=== PATIENT | female | born 1990 | race Caucasian/White ===

== ENCOUNTER → 2021-01-02 13:23 | Outpatient (CLI) | payer OTHER, SELFPAY ==
--- NOTE | ~2021-01-02 | US_ITS ---
EXAMINATION: US OB transvaginal DATE: 01/02/2021 13:42 INDICATION: Gestational dating TECHNIQUE: Real-time transvaginal obstetric ultrasound. FINDINGS: Ultrasound dated 08/29/2015 The uterus measures 9 x 6.1 x 6.1 cm. There is an intrauterine gestational sac, with pole ident ified. The crown rump length measures 0.5 cm, which correlates with a estimated gestational age of 6 weeks 1 day. heart tones are identified measuring 106 BPM. Left ovary is unremarkable measur ing 4.1 x 3.2 x 2.4 cm. Right ovary is not visualized. Small amount of free fluid in the pelvis. IMPRESSION: 1. SL IUP with an EGA of 6 weeks, 1 days (EDC by current ultrasound of 08/27/2021). Reviewed, dictated and finalized at location A. IMPRESSION: 1. SL IUP with an EGA of 6 weeks, 1 days (EDC by current ultrasound of 08/28/19).
== END ==
PROVIDERS: Visit Provider Obstetrics & Gynecology Gynecology
DX: Z34.91 Encounter for supervision of normal pregnancy, unspecified, first trimester (principal); Z3A.01 Less than 8 weeks gestation of pregnancy
CPT/HCPCS: 76817

== ENCOUNTER → 2021-01-16 15:55 | Outpatient (CLI) | payer OTHER, SELFPAY ==
--- NOTE | ~2021-01-16 | US_ITS ---
EXAMINATION: US OB <= 14 weeks fetus DATE: 01/16/2021 16:09 INDICATION: First trimester viability assessment TECHNIQUE: Real-time pelvic transabdominal and transvaginal ultrasound was performed. COMPARISON: None. FINDINGS: The uterus measures 11.5 x 7.5 x 8.1 cm. There is an intrauterine gestational sac. A yolk sac is identified. heart motion is identified measuring 179 beats per minute (bpm) by M-mode Do ppler. The crown rump length measures 1.9 cm , which correlates with an estimated gestational a ge of 8 weeks and 3 day(s) (+/-) 5 day(s). The right ovary measures 4.2 x 2.7 x 2.6 cm. The left ovary measures 3.9 x 2.5 x 1.7 cm. There is nor mal vascular flow in the ovaries. There is no free fluid in the pelvis. IMPRESSION: 1. Live intrauterine with an estimated gestational age of 8 weeks and 3 day(s) (+/-) 5 day( s) and an estimated delivery date of 08/25/2021. Reviewed, dictated and finalized at location B. IMPRESSION: 1. Live intrauterine with an estimated gestational age of 8 weeks and 3 day(s) (+/-) 5 day(s) and an estimated delivery date of 08/25/2021.
== END ==
PROVIDERS: Visit Provider Nurse Practitioner
DX: Z34.91 Encounter for supervision of normal pregnancy, unspecified, first trimester (principal); Z3A.01 Less than 8 weeks gestation of pregnancy
CPT/HCPCS: 76801

== ENCOUNTER 2021-03-04 09:19 | Observation (INO) | payer OTHER, SELFPAY ==
[2021-03-04] VITALS (13 sets, daily range): BP systolic 89–132; BP diastolic 46–70; PULSE 88–115; RESP 16–20; TEMP 36.7–38.4; O2SAT 98–100
--- NOTE | ~2021-03-04 | XR_ITS ---
EXAMINATION: XR chest 2V 03/04/2021 22:49 INDICATION: Chest congestion. PROCEDURE: 2 view chest COMPARISON: 05/08/2014 FINDINGS: The lungs are clear. The cardiomediastinal silhouette is within normal limits. There are no pleural effusions. There is no pneumothorax suspected. IMPRESSION: 1: NO ACUTE CARDIOPULMONARY DISEASE. Reviewed, dictated and finalized at location A.
[2021-03-04 09:56] LABS: Basophils Percent Auto 0.3 % (0.2-1.2); Eosinophils Percent Auto 0.2 % (0-4.4); Hemoglobin 11.3 g/dL (12.0-15.0); Immature Granulocyte Absolute 0.04 K/mm3 (0.00-0.031); Immature Granulocyte Percent A 0.6 % (0-0.5); Lymphocytes Absolute Auto 0.45 K/mm3 (0.9-3.2); Lymphocytes Percent Auto 7.2 % (18.3-44.2); Mean Corpuscular HGB Conc 33.2 g/dl (32-36); Mean Corpuscular Hemoglobin 31.2 pg (26-34); Mean Corpuscular Volume 93.9 fl (80-100); Mean Platelet Volume 8.7 fl (7.4-10.4); Monocytes Absolute Auto 0.5 K/mm3 (0.1-0.6); Neutrophils Absolute Auto 5.2 K/mm3 (1.3-6.7); Neutrophils Percent Auto 83.7 % (45.5-73.1); Platelet Count Result 205 k/mm3 (150-375); Red Blood Count 3.62 M/mm3 (4.2-5.4); Red Cell Distribution Width 13.7 % (11.5-14.5); White Blood Count 6.2 K/mm3 (4.5-10.0)
[2021-03-04 11:11] LABS: Alanine Aminotransferase 34 U/L (4-35); Albumin Level 3.7 g/dL (3.5-5.1); Alkaline Phosphatase 45 U/L (38-126); Anion Gap 6 mmol/L (8-16); Aspartate Amino Transferase 40 U/L (14-36); Bilirubin,Total 0.4 mg/dL (0.2-1.3); Blood Urea Nitrogen 6 mg/dL (7-17); Calcium 9.1 mg/dL (8.4-10.2); Carbon Dioxide 22 mmol/L (22-30); Chloride 107 mmol/L (98-107); Estimated CRCL calculation 113 ml/min; Estimated Glomerular Filt Rate > 60; Glucose 93 mg/dL (65-110); Lipase 73 U/L (23-300); Potassium 3.8 mmol/L (3.4-5.0); Sodium 135 mmol/L (137-145)
--- NOTE | 2021-03-04 12:16 | ED.GENADULT ---
HPI - General Adult General Chief complaint: Nausea/Vomiting/Diarrhea Stated complaint: n/v/d, fever 15 wks Time Seen by Provider: 03/04/21 11:24 Source: patient Mode of arrival: ambulatory Limitations: no limitations History of Present Illness HPI narrative: Patient presents for evaluation of nausea, vomiting, diarrhea since yesterday. She states she is currently , 15 weeks gestation, confirmed IUP per ultrasound during this . . She was told she is high risk due to history of miscarriage. She is currently under the care of Dr. Aguilar. Last week she had allergy symptoms. She works as a nurse at [employer] she was tested for Covid through [employer] last . That test was negative. He was concerned about her GI symptoms that started yesterday. Additionally she has had a fever as high as 102.0?F. She did have improvement with Tylenol but continued to have temperatures around 101.7 ?F through though night last night. She has experienced some suprapubic cramping and sharp pain but believes this is due to vomiting. She had some vaginal spotting a few weeks ago but none since that time. She has had a cough with exertional dyspnea but no chest pain. She has an underlying history of atrial fibrillation and underwent cardiac ablation earlier this year. She is currently on Lovenox during her and her credit charge authorizer is Dr. [place]. Her metoprolol was discontinued during this . Last night she had episodes where she felt she was back in atrial fibrillation with rates in 160's. The periods of time where she felt she was in atrial fibrillation lasted about fifteen minutes. She states her fiance, with whom she lives, also had a fever last night. She has received both of her doses of COVID vaccination. No hx of COVID. She currently had a frontal headache that she describes as pressure . She has been taking tylenol which seems to help reduce her pain. Related Data Home Medications Medication Instructions Recorded Confirmed No Home Medications 01/31/20 01/31/20 Allergies Allergy/AdvReac Type Severity Reaction Status Date / Time peanut Allergy Unknown Unknown Verified 01/31/20 16:41 tramadol Allergy Unknown Unknown Verified 01/31/20 16:41 Review of Systems Review of Systems: CONSTITUTIONAL: Reports fever. Denies chills, or sweats. EYES: Denies visual changes, redness, or discharge. ENT: Denies rhinorrhea, congestion, sore throat, or otalgia. CARDIOVASCULAR: Denies chest pain, palpitations, or edema. RESPIRATORY: Reports cough and exertional dyspnea GASTROINTESTINAL: Reports suprapubic pain, nausea, vomiting, and diarrhea. GENITOURINARY: Denies dysuria or hematuria. SKIN: Denies rash or itching. MUSCULOSKELETAL: Denies back pain, joint pain, or myalgia. NEUROLOGIC: Reports headache. Denies numbness, dizziness, or weakness. PSYCHIATRIC: Denies anxiety or depression. [facility] Past Medical History Medical History (Updated 03/04/21 @ 16:29 by BRICE Payne, ) ADHD Atrial fibrillation Heart murmur Surgical History Surgical History Hx of cholecystectomy Family History Family History Grandparent Family history of cardiovascular disease Father Cerebrovascular accident Social History Social History Smoking status: Never smoker Second hand tobacco smoke exposure: No Alcohol intake: current Exam Narrative: GENERAL: Well-appearing, well-nourished, and in no acute distress. HEAD: Normocephalic, atraumatic. EYES: PERRLA and EOMI. ENT: Nares clear, no rhinorrhea or epistaxis. Mucous membranes moist. Oropharynx without tonsillar hypertrophy exudate or other lesions. Bilateral TMs pearly zapata nonbulging NECK: Supple. No adenopathy or masses. N
[2021-03-04] MEDS: METOCLOPRAMIDE HCL INJ 10 MG/2 ML VIAL IV PUSH (13:35)
[2021-03-04] MEDS: diphenhydrAMINE HCl INJ 50 MG/ML VIAL 25 MG IV PUSH (13:35)
[2021-03-04] MEDS: LACTATED RINGERS 1,000 ML 999 ML IV CONT ×2 (13:36→15:07)
[2021-03-04] MEDS: ACETAMINOPHEN 325 MG TABLET 650 MG PO (13:36)
[2021-03-04 16:59] LABS: Add Urine Microscopic? YES; Appearance Urine Clear (Clear); Bilirubin Urine Negative (Negative); Blood Urine Negative (Negative); Color Urine Yellow (Yellow); Glucose Urine UA Negative (Negative); Ketones Urine 2+ mg/dL (Negative); Leukocyte Esterase Ur Negative LEU/UL (Negative); Mucus Urine Rare /lpf; Nitrate Urine Negative (Negative); Protein Urine Negative (Negative); RBC Urine 0-2 /hpf (0-2); Specific Grav Ur 1.016 (1.001-1.035); Squamous Epithelial Cell Urine Moderate /hpf (Few); Urobilinogen Urine Negative mg/dL (<2.0); WBC Urine 0-3 /hpf
--- NOTE | 2021-03-04 17:26 | OBADM ---
This patient, Tamia Hurt, admitted to the OB room OB Post 115 for observation. Patient/family oriented to hospital policies and general routines including ID bracelet, bed and alarms, visiting hours, pain management, procedures, bathroom and other care routines, personal items, smoking policy, room service/diet, and visiting hours. Patient/Family are encouraged to report perceived risks to care and to ask questions if they do not understand what they are told or what they should do.
[2021-03-04] MEDS: DEXTROSE 5%/LACTATED RINGERS 1,000 ML 999 ML IV CONT (18:11)
[2021-03-04] MEDS: FAMOTIDINE 20 MG/2 ML VIAL IV PUSH (18:12)
[2021-03-04] MEDS: ONDANSETRON INJ 4 MG/2 ML VIAL IV PUSH (18:12)
[2021-03-04] MEDS: DEXTROSE 5%/LACTATED RINGERS 1,000 ML 200 ML IV CONT (19:50)
--- NOTE | 2021-03-04 20:48 | PC.NURSE ---
UPdate to Dr. Stern per phone. Pt to stay for continued IV fluid.
[2021-03-04] MEDS: ENOXAPARIN 40 MG/0.4 ML SYRINGE SUB-Q (21:16)
[2021-03-04] MEDS: ACETAMINOPHEN 500 MG TABLET 1000 MG PO (22:04)
--- NOTE | 2021-03-04 22:23 | PC.NURSE ---
Pt states her congestion seems to be increasing. Temp 101.1 (oral) O2 sat 100%. Lungs sound clear at this time. Dr. Stern notifeid and CXR ordered.
--- NOTE | 2021-03-04 22:50 | PC.NURSE ---
Back to room after Xray.
--- NOTE | 2021-03-04 23:00 | PC.NURSE ---
Temp 99.0 (oral) Pt states she is feeling little better since decrease in temp. IV infusing without difficulty. Pt resting quietly. Resp non labored.l Intermittent moist cough.
[2021-03-05 03:16] VITALS: PULSE 92; O2SAT 100
[2021-03-05 03:17] VITALS: BP 104/62; PULSE 91
[2021-03-05 03:21] VITALS: PULSE 92; O2SAT 100
[2021-03-05] MEDS: DEXTROSE 5%/LACTATED RINGERS 1,000 ML 200 ML IV CONT (03:21)
[2021-03-05 05:05] VITALS: PULSE 97; O2SAT 100
--- NOTE | 2021-03-05 05:05 | PC.NURSE ---
Update to Dr. Stern on unit. Pt continues to have peristant cough, now has sore throat. Temp 100.4 currently. Tylenol given,. Pt states she has body aches.
[2021-03-05 05:07] VITALS: BP 105/61; PULSE 97
[2021-03-05 05:13] VITALS: TEMP 38
--- NOTE | 2021-03-05 05:30 | PC.NURSE ---
Dr. Stern to room to talk to patient. Pt will be discharged to home.
--- NOTE | 2021-03-05 05:37 | PM.OBTRLD ---
OB - Triage/Final Diagnosis Visit Information Date of evaluation: 03/05/21 Reason for evaluation: other (nausea, vomiting, cough, fever) Comments/Additional reasons for admission: Patient admitted from ER for iv hydration. Patient with nausea and vomiting and poor appetite. Given IV fluids overnight. Cough and fever prior to admit and contining. Covid test pending O2 sats 98-100 vss tm 101.1 lungs clear per RN FHTs + a/p1. IUP 16 wks 2. Nausea and vomiting-rx zofran, push fluids 3. cough, fever-covid pending but suspected rx Robitussin with codeine dc home I have assessed the risk for this patient, Tamia Hurt, and determined that she would benefit from observation care. Evaluation Laboratory results: Laboratory Tests 03/04/21 03/04/21 03/04/21 09:35 09:35 16:50 WBC 6.2 RBC 3.62 L Hgb 11.3 L Hct 34.0 L MCV 93.9 MCH 31.2 MCHC 33.2 RDW 13.7 Plt Count 205 MPV 8.7 Immature Gran % (Auto) 0.6 H Neut % (Auto) 83.7 H Lymph % (Auto) 7.2 L [place] % (Auto) 8.0 Eos % (Auto) 0.2 Baso % (Auto) 0.3 Lymph # (Auto) 0.45 L [place] # (Auto) 0.5 Eos # (Auto) 0.0 Baso # (Auto) 0.0 Abs Immat Gran (auto) 0.04 H Absolute Neuts (auto) 5.2 Absolute Nucleated RBC 0.0 Nucleated RBC % 0.0 Sodium 135 L Potassium 3.8 Chloride 107 Carbon Dioxide 22 Anion Gap 6 L BUN 6 L Creatinine 0.60 L Estim Creat Clear Calc 113 Estimated GFR > 60 Glucose 93 Calcium 9.1 Total Bilirubin 0.4 AST 40 H ALT 34 Alkaline Phosphatase 45 Total Protein 7.0 Albumin 3.7 Lipase 73 Urine Color Yellow Urine Appearance Clear Urine pH 6.0 Ur Specific [place] 1.016 Urine Protein Negative Urine Glucose (UA) Negative Urine Ketones 2+ H Ur Blood (Man) Negative Urine Nitrate Negative Urine Bilirubin Negative Urine Urobilinogen Negative Leukocyte Esterase Rfl Negative Urine RBC 0-2 Urine WBC 0-3 Ur Squamous Epith Cells Moderate H Urine Mucus Rare Vital signs: Vital Signs - 24 hr 03/04/21 09:26 03/04/21 11:28 03/04/21 16:47 Temperature 99.0 F 99.9 F H Pulse Rate 115 H 108 H 99 Respiratory Rate 18 16 16 Blood Pressure 132/69 111/70 105/70 Pulse Oximetry 100 98 100 03/04/21 18:15 03/04/21 18:20 03/04/21 18:34 Temperature 98.0 F Pulse Rate 88 Respiratory Rate 20 Blood Pressure 104/67 Pulse Oximetry 100 100 100 03/04/21 19:50 03/04/21 19:53 03/04/21 22:04 Temperature 99.1 F 101.1 F H Pulse Rate 93 Respiratory Rate Blood Pressure 106/61 Pulse Oximetry 100 03/04/21 22:06 03/04/21 23:00 03/04/21 23:10 Temperature 99 F Pulse Rate 91 Respiratory Rate Blood Pressure 89/46 L Pulse Oximetry 100 03/04/21 23:11 03/05/21 03:16 03/05/21 03:17 Temperature Pulse Rate 91 Respiratory Rate Blood Pressure 104/62 Pulse Oximetry 99 100 03/05/21 03:21 03/05/21 05:05 03/05/21 05:07 Temperature Pulse Rate 97 Respiratory Rate Blood Pressure 105/61 Pulse Oximetry 100 100 03/05/21 05:13 Temperature 100.4 F H Pulse Rate Respiratory Rate Blood Pressure Pulse Oximetry
[2021-03-05 20:25] LABS: SARS-CoV-2 RNA PCR Positive
== END 2021-03-05 06:00 | disposition home or self-care (01) ==
LOC: ANHED 16:29 → ANHOBPP 17:33
PROVIDERS: Emergency Medicine; Admitting Provider Obstetrics & Gynecology Gynecology; Emergency Provider Nurse Practitioner; PCP Family Medicine; Visit Provider Obstetrics & Gynecology Gynecology
DX: U07.1 COVID-19 (principal); O21.0 Mild hyperemesis gravidarum; R19.7 Diarrhea, unspecified; I48.91 Unspecified atrial fibrillation; Z3A.15 15 weeks gestation of pregnancy; Z3A.14 14 weeks gestation of pregnancy
CPT/HCPCS: 36415; 71046; 80053; 81001; 83690; 85025; 96360; 96361; 96372; 96374; 96375; 99285; A9270; C9803; G0378; G0379; J1200; J1650; J2405; J2765; J7120; J7121; U0003; U0005

== ENCOUNTER 2021-05-26 16:57 | Observation (INO) | payer OTHER, SELFPAY ==
[2021-05-26] VITALS (8 sets, daily range): BP systolic 111–114; BP diastolic 73; PULSE 96–109; O2SAT 100; BMI 23.1
[2021-05-26 18:08] LABS: Basophils Percent Auto 0.2 % (0.2-1.2); Eosinophils Absolute Auto 0.1 K/mm3 (0-0.3); Hematocrit 28.5 % (37.0-47.0); Hemoglobin 9.4 g/dL (12.0-15.0); Immature Granulocyte Absolute 0.08 K/mm3 (0.00-0.031); Immature Granulocyte Percent A 0.7 % (0-0.5); Lymphocytes Absolute Auto 1.97 K/mm3 (0.9-3.2); Mean Corpuscular Hemoglobin 31.4 pg (26-34); Mean Corpuscular Volume 95.3 fl (80-100); Mean Platelet Volume 8.8 fl (7.4-10.4); Monocytes Absolute Auto 0.9 K/mm3 (0.1-0.6); Monocytes Percent Auto 7.8 % (2.6-8.5); Neutrophils Absolute Auto 7.9 K/mm3 (1.3-6.7); Neutrophils Percent Auto 72.3 % (45.5-73.1); Platelet Count Result 256 k/mm3 (150-375); Red Blood Count 2.99 M/mm3 (4.2-5.4); Red Cell Distribution Width 14.3 % (11.5-14.5)
[2021-05-26 18:14] LABS: Creatinine Urine 41.5 mg/dL; Total Protein Urine Random 16 mg/dL; Ur Ttl Prot Creatinine Ratio 0.39 mg/mg (0-0.20)
[2021-05-26 18:21] LABS: Alanine Aminotransferase 17 U/L (4-35); Albumin Level 3.3 g/dL (3.5-5.1); Alkaline Phosphatase 63 U/L (38-126); Anion Gap 4 mmol/L (8-16); Aspartate Amino Transferase 23 U/L (14-36); Bilirubin,Total 0.3 mg/dL (0.2-1.3); Blood Urea Nitrogen 8 mg/dL (7-17); Calcium 8.9 mg/dL (8.4-10.2); Carbon Dioxide 28 mmol/L (22-30); Chloride 102 mmol/L (98-107); Estimated Glomerular Filt Rate > 60; Glucose 88 mg/dL (65-110); Potassium 3.5 mmol/L (3.4-5.0); Sodium 134 mmol/L (137-145)
--- NOTE | 2021-05-29 13:30 | P.PNOB_ITS ---
OB - Triage/Final Diagnosis Visit Information Comments/Additional reasons for admission: I have assessed the risk for this patient, Tamia Hurt, and determined that she would benefit from observation care. Evaluation Laboratory results: Laboratory Tests 05/26/21 05/26/21 05/26/21 18:00 18:00 18:00 WBC 11.0 H RBC 2.99 L Hgb 9.4 L Hct 28.5 L MCV 95.3 MCH 31.4 MCHC 33.0 RDW 14.3 Plt Count 256 MPV 8.8 Immature Gran % (Auto) 0.7 H Neut % (Auto) 72.3 Lymph % (Auto) 18.0 L [place] % (Auto) 7.8 Eos % (Auto) 1.0 Baso % (Auto) 0.2 Lymph # (Auto) 1.97 [place] # (Auto) 0.9 H Eos # (Auto) 0.1 Baso # (Auto) 0.0 Abs Immat Gran (auto) 0.08 H Absolute Neuts (auto) 7.9 H Absolute Nucleated RBC 0.0 Nucleated RBC % 0.0 Sodium 134 L Potassium 3.5 Chloride 102 Carbon Dioxide 28 Anion Gap 4 L BUN 8 Creatinine 0.60 L Estim Creat Clear Calc Not Reportable Estimated GFR > 60 Glucose 88 Uric Acid 2.0 L Calcium 8.9 Total Bilirubin 0.3 AST 23 ALT 17 Alkaline Phosphatase 63 Total Protein 6.0 L Albumin 3.3 L U Random Total Protein 16 Urine Creatinine 41.5 Protein/Creat Ratio 2 0.39 H Final Diagnosis (1) SVT (supraventricular tachycardia): Code(s): I47.1 - Supraventricular tachycardia Status: Acute
== END 2021-05-26 19:04 | disposition home or self-care (01) ==
PROVIDERS: Admitting Provider Obstetrics & Gynecology Gynecology; PCP Family Medicine; Visit Provider Obstetrics & Gynecology Gynecology
DX: O99.412 Diseases of the circulatory system complicating pregnancy, second trimester (principal); I47.1 Supraventricular tachycardia; Z3A.26 26 weeks gestation of pregnancy
CPT/HCPCS: 36415; 80053; 82570; 84156; 84550; 85025; G0378; G0379

== ENCOUNTER 2021-07-22 15:18 | Outpatient (RCR) | payer OTHER, SELFPAY ==
[2021-07-18 13:58] VITALS: BP 112/67; PULSE 84
== END 2021-08-19 09:29 | disposition home or self-care (01) ==
LOC: ANHOBOP 15:18
PROVIDERS: PCP Family Medicine; Visit Provider Obstetrics & Gynecology Gynecology
DX: O99.413 Diseases of the circulatory system complicating pregnancy, third trimester (principal); I47.1 Supraventricular tachycardia; Z3A.34 34 weeks gestation of pregnancy
CPT/HCPCS: 59025

== ENCOUNTER 2021-07-22 15:55 | Observation (INO) | payer OTHER, SELFPAY ==
[2021-07-22] VITALS (43 sets, daily range): BP systolic 116–177; BP diastolic 78–96; PULSE 76–109; TEMP 36.5–36.6; O2SAT 99–100
[2021-07-22] MEDS: ONDANSETRON INJ 4 MG/2 ML VIAL IV PUSH (16:40)
[2021-07-22 17:41] LABS: Alanine Aminotransferase 15 U/L (4-35); Alkaline Phosphatase 112 U/L (38-126); Anion Gap 9 mmol/L (8-16); Aspartate Amino Transferase 22 U/L (14-36); Bilirubin,Total 0.4 mg/dL (0.2-1.3); Blood Urea Nitrogen 5 mg/dL (7-17); Calcium 8.1 mg/dL (8.4-10.2); Carbon Dioxide 20 mmol/L (22-30); Chloride 103 mmol/L (98-107); Estimated Glomerular Filt Rate > 60; Glucose 178 mg/dL (65-110); Potassium 3.3 mmol/L (3.4-5.0); Sodium 132 mmol/L (137-145)
[2021-07-22 17:43] LABS: EDCOVIDSCREEN Negative (Negative)
--- NOTE | 2021-07-22 17:49 | OBADM ---
This patient, Tamia Jha, admitted to the OB room OB Post 117 for observation. Patient/family oriented to hospital policies and general routines including ID bracelet, bed and alarms, visiting hours, pain management, procedures, bathroom and other care routines, personal items, smoking policy, room service/diet, and visiting hours. Patient/Family are encouraged to report perceived risks to care and to ask questions if they do not understand what they are told or what they should do.
[2021-07-22] MEDS: DEXTROSE 5%/0.45% SOD CHL 1,000 ML 250 ML IV CONT ×2 (17:51→17:54)
[2021-07-22 17:54] LABS: Influenza Control Positive
--- NOTE | 2021-07-22 18:27 | PC.NURSE ---
1825- Per Dr. Stern, give Procardia 10 mg PO once now, if contractions no better after 30 min, give 10 mg more.
--- NOTE | 2021-07-22 18:27 | PC.NURSE ---
1608- SPoke with Dr. Stern, orders received for D5 1/2 NS 1000 L bolus and the 250/hr. Zofran, covid swab and flu swabs. SVE also.
[2021-07-22] MEDS: NIFEdipine 10 MG CAPSULE PO ×2 (18:33→19:29)
[2021-07-22 20:17] LABS: Digoxin < 0.4 ng/mL (0.8-2.0)
--- NOTE | 2021-07-23 06:55 | PM.OBTRLD ---
OB - Triage/Final Diagnosis Visit Information Comments/Additional reasons for admission: I have assessed the risk for this patient, Tamia Jha, and determined that she would benefit from observation care. Evaluation Laboratory results: Laboratory Tests 07/22/21 07/22/21 07/22/21 16:56 16:58 16:58 Sodium Potassium Chloride Carbon Dioxide Anion Gap BUN Creatinine Estim Creat Clear Calc Estimated GFR Glucose Calcium Total Bilirubin AST ALT Alkaline Phosphatase Total Protein Albumin Digoxin Influenza A (RT-PCR) Cancelled Influenza B (RT-PCR) Cancelled Influenza Types A,B Ag Negative SARS-CoV-2 IgG/IgM Ag?Rapid Negative 07/22/21 07/22/21 17:12 17:12 Sodium 132 L Potassium 3.3 L Chloride 103 Carbon Dioxide 20 L Anion Gap 9 BUN 5 L Creatinine 0.50 L Estim Creat Clear Calc Not Reportable Estimated GFR > 60 Glucose 178 H Calcium 8.1 L Total Bilirubin 0.4 AST 22 ALT 15 Alkaline Phosphatase 112 Total Protein 5.0 L Albumin 3.0 L Digoxin < 0.4 L Influenza A (RT-PCR) Influenza B (RT-PCR) Influenza Types A,B Ag SARS-CoV-2 IgG/IgM Ag?Rapid Vital signs: Vital Signs - 24 hr 07/22/21 17:30 07/22/21 17:31 07/22/21 17:33 Temperature Pulse Rate 89 85 Blood Pressure 177/96 H 164/90 H Pulse Oximetry 100 07/22/21 17:35 07/22/21 17:40 07/22/21 17:45 Temperature Pulse Rate Blood Pressure Pulse Oximetry 100 100 100 07/22/21 17:46 07/22/21 17:53 07/22/21 17:58 Temperature Pulse Rate 95 Blood Pressure 139/89 Pulse Oximetry 100 100 07/22/21 18:03 07/22/21 18:08 07/22/21 18:13 Temperature Pulse Rate Blood Pressure Pulse Oximetry 100 100 100 07/22/21 18:18 07/22/21 18:23 07/22/21 18:28 Temperature Pulse Rate Blood Pressure Pulse Oximetry 100 99 100 07/22/21 18:33 07/22/21 18:35 07/22/21 18:38 Temperature Pulse Rate 89 Blood Pressure 116/78 Pulse Oximetry 100 100 07/22/21 18:39 07/22/21 18:43 07/22/21 18:48 Temperature 97.7 F Pulse Rate Blood Pressure Pulse Oximetry 100 100 07/22/21 18:53 07/22/21 18:58 07/22/21 19:00 Temperature 98 F Pulse Rate Blood Pressure Pulse Oximetry 100 100 07/22/21 19:03 07/22/21 19:08 07/22/21 19:15 Temperature Pulse Rate Blood Pressure Pulse Oximetry 100 99 99 07/22/21 19:20 07/22/21 19:25 07/22/21 19:30 Temperature Pulse Rate Blood Pressure Pulse Oximetry 100 100 100 07/22/21 19:33 07/22/21 19:35 07/22/21 19:40 Temperature Pulse Rate Blood Pressure Pulse Oximetry 100 100 100 07/22/21 19:45 07/22/21 19:50 07/22/21 19:55 Temperature Pulse Rate Blood Pressure Pulse Oximetry 100 100 100 07/22/21 19:57 07/22/21 20:02 07/22/21 20:07 Temperature Pulse Rate Blood Pressure Pulse Oximetry 100 100 100 07/22/21 20:12 07/22/21 20:17 07/22/21 20:22 Temperature Pulse Rate Blood Pressure Pulse Oximetry 100 100 100 07/22/21 20:27 Temperature Pulse Rate Blood Pressure Pulse Oximetry 100 Final Diagnosis (1) Nausea and vomiting during : Code(s): O21.9 - Vomiting of , unspecified Status: Acute (2) contractions: Code(s): O47.00 - False labor before 37 completed weeks of gestation, unspecified trimester Status: Acute
== END 2021-07-22 20:55 | disposition home or self-care (01) ==
PROVIDERS: Admitting Provider Obstetrics & Gynecology Gynecology; PCP Family Medicine; Visit Provider Obstetrics & Gynecology Gynecology
DX: O21.2 Late vomiting of pregnancy (principal); O47.03 False labor before 37 completed weeks of gestation, third trimester; Z3A.34 34 weeks gestation of pregnancy
CPT/HCPCS: 36415; 80053; 80162; 87426; 87804; 96374; A9270; C9803; G0378; G0379; J2405

== ENCOUNTER 2021-07-24 10:08 | Observation (INO) | payer OTHER, SELFPAY ==
--- NOTE | 2021-07-24 10:08 | OBADM ---
This patient, Tamia Jha, admitted to the OB room OB Post 111 for observation. Patient/family oriented to hospital policies and general routines including ID bracelet, bed and alarms, visiting hours, pain management, procedures, bathroom and other care routines, personal items, smoking policy, room service/diet, and visiting hours. Patient/Family are encouraged to report perceived risks to care and to ask questions if they do not understand what they are told or what they should do.
[2021-07-24 10:30] VITALS: BP 108/71; PULSE 124
[2021-07-24] MEDS: NIFEdipine 10 MG CAPSULE PO ×2 (11:05→13:26)
[2021-07-24 13:29] VITALS: BP 107/70; PULSE 88
--- NOTE | 2021-07-30 06:53 | PM.OBTRLD ---
OB - Triage/Final Diagnosis Visit Information Reason for evaluation: threatened labor Comments/Additional reasons for admission: I have assessed the risk for this patient, Tamia Jha, and determined that she would benefit from observation care.
== END 2021-07-24 16:17 | disposition home or self-care (01) ==
PROVIDERS: Admitting Provider Obstetrics & Gynecology Gynecology; PCP Family Medicine; Visit Provider Obstetrics & Gynecology Gynecology
DX: O47.03 False labor before 37 completed weeks of gestation, third trimester (principal); Z3A.35 35 weeks gestation of pregnancy
CPT/HCPCS: A9270; G0378; G0379